=== PATIENT | male | born 1980 | race Caucasian/White ===

== ENCOUNTER 2020-06-09 22:05 | Inpatient (IN) | payer MEDICAID, SELFPAY ==
[~2020-06-09] VITALS: Ht 170.2 cm; Wt 75.3 kg
[2020-06-09 22:30] VITALS: Ht 170.2 cm; Wt 75.3 kg
[2020-06-09 22:49] LABS: BASOPHIL % 0.1 % (0-2); PLATELET COUNT 240 x10^3mcL (130-400)
[2020-06-09 22:58] LABS: CALCIUM 8.5 mg/dL (8.5-10.1); CARBON DIOXIDE 26.8 mmol/L (21-32); CHLORIDE SERUM 93 mmol/L (98-107); GFR1 > 60 mL/min; GLUCOSE SERUM 241 mg/dL (74-106); POTASSIUM SERUM 3.8 mmol/L (3.5-5.1); SODIUM SERUM 130 mmol/L (136-145)
[2020-06-10] VITALS (7 sets, daily range): BP systolic 110–146; BP diastolic 71–91
[2020-06-10 01:27] LABS: CHOLESTEROL/HDL RATIO 3.4; MAGNESIUM 2.5 mg/dL (1.8-2.4)
[2020-06-10 01:35] LABS: FREE T4 1.37 ng/dL (0.76-1.46); FREE THYROXINE INDEX 2.7 ug/dL (1.4-4.5); T4(THYROXINE) 7.4 ug/dL (4.7-13.3)
[2020-06-10 01:51] LABS: C REACTIVE PROTEIN 19.5 mg/dL (<=0.9)
[2020-06-10 02:12] LABS: T3 TOTAL 0.44 ng/mL
[2020-06-10 06:08] LABS: BASOPHIL % 0.5 % (0-2); PLATELET COUNT 242 x10^3mcL (130-400); RED CELL DISTRIBUTION WIDTH 13.2 % (11.5-14.5)
[2020-06-10 06:35] LABS: UA SPECIFIC GRAVITY 1.025 (1.005-1.035); microscopic required? YES; urine erythrocyte TRACE (NEGATIVE)
[2020-06-10 06:54] LABS: AMPHETAMINE QUAL UR NONE DETECTED (See below)
[2020-06-10 07:05] LABS: CALCIUM 8.2 mg/dL (8.5-10.1); CARBON DIOXIDE 29.1 mmol/L (21-32); CHLORIDE SERUM 94 mmol/L (98-107); CREATININE SERUM 0.9 mg/dL (0.7-1.3); GFR1 > 60 mL/min; GLUCOSE SERUM 256 mg/dL (74-106); MAGNESIUM 2.3 mg/dL (1.8-2.4); PHOSPHOROUS 3.5 mg/dL (2.5-4.9); POTASSIUM SERUM 3.7 mmol/L (3.5-5.1); SODIUM SERUM 131 mmol/L (136-145)
[2020-06-11 05:30] VITALS: BP 102/74
[2020-06-11 06:59] LABS: ALKALINE PHOSPHATASE 65 U/L (46-116); ALT/SGPT 32 U/L (16-63); AST/SGOT 34 U/L (15-37); BILIRUBIN TOTAL 0.5 mg/dL (0.20-1.00); CALCIUM 8.9 mg/dL (8.5-10.1); CARBON DIOXIDE 22.2 mmol/L (21-32); CHLORIDE SERUM 96 mmol/L (98-107); CREATININE SERUM 0.9 mg/dL (0.7-1.3); GFR1 > 60 mL/min; GLUCOSE SERUM 316 mg/dL (74-106); MAGNESIUM 2.7 mg/dL (1.8-2.4); PHOSPHOROUS 3.8 mg/dL (2.5-4.9); POTASSIUM SERUM 4.1 mmol/L (3.5-5.1); SODIUM SERUM 133 mmol/L (136-145); TOTAL PROTEIN, SERUM 7.5 g/dL (6.4-8.2)
[2020-06-11 07:01] LABS: BASOPHIL % 0.2 % (0-2); PLATELET COUNT 310 x10^3mcL (130-400); RED CELL DISTRIBUTION WIDTH 12.9 % (11.5-14.5)
[2020-06-11 07:09] LABS: ALBUMIN 2.5 g/dL (3.4-5.0)
[2020-06-11 07:40] LABS: C REACTIVE PROTEIN 17.2 mg/dL (<=0.9)
[2020-06-11 08:49] VITALS: BP 103/70
[2020-06-11 13:16] VITALS: BP 125/75
[2020-06-11 16:10] VITALS: BP 115/75
[2020-06-11 19:49] VITALS: BP 118/78
[2020-06-12 06:04] VITALS: BP 106/70
[2020-06-12 07:18] LABS: BASOPHIL % 0.3 % (0-2); PLATELET COUNT 385 x10^3mcL (130-400)
[2020-06-12 07:37] VITALS: BP 106/72
[2020-06-12 08:21] LABS: ALKALINE PHOSPHATASE 64 U/L (46-116); ALT/SGPT 31 U/L (16-63); AST/SGOT 30 U/L (15-37); BILIRUBIN TOTAL 0.4 mg/dL (0.20-1.00); C REACTIVE PROTEIN 5.6 mg/dL (<=0.9); CARBON DIOXIDE 29.3 mmol/L (21-32); CHLORIDE SERUM 100 mmol/L (98-107); CREATININE SERUM 0.7 mg/dL (0.7-1.3); GFR1 > 60 mL/min; GLUCOSE SERUM 166 mg/dL (74-106); MAGNESIUM 2.4 mg/dL (1.8-2.4); PHOSPHOROUS 3.5 mg/dL (2.5-4.9); POTASSIUM SERUM 3.5 mmol/L (3.5-5.1); SODIUM SERUM 138 mmol/L (136-145); TOTAL PROTEIN, SERUM 7.1 g/dL (6.4-8.2)
[2020-06-12 08:23] LABS: ALBUMIN 2.4 g/dL (3.4-5.0)
[2020-06-12 11:46] VITALS: BP 113/75
[2020-06-12 16:25] VITALS: BP 132/84
[2020-06-12 21:43] VITALS: BP 129/79
[2020-06-13 06:02] VITALS: BP 134/79
[2020-06-13 07:28] LABS: BASOPHIL % 0.2 % (0-2); RED CELL DISTRIBUTION WIDTH 13.1 % (11.5-14.5)
[2020-06-13 07:32] LABS: CALCIUM 8.7 mg/dL (8.5-10.1); CARBON DIOXIDE 27.7 mmol/L (21-32); CHLORIDE SERUM 103 mmol/L (98-107); CREATININE SERUM 0.8 mg/dL (0.7-1.3); GFR1 > 60 mL/min; GLUCOSE SERUM 227 mg/dL (74-106); MAGNESIUM 2.1 mg/dL (1.8-2.4); PHOSPHOROUS 3.8 mg/dL (2.5-4.9); POTASSIUM SERUM 3.4 mmol/L (3.5-5.1); SODIUM SERUM 139 mmol/L (136-145)
[2020-06-13 08:03] VITALS: BP 99/59
[2020-06-13 08:10] LABS: PLATELET COUNT 441 x10^3mcL (130-400)
[2020-06-13 08:20] LABS: BILIRUBIN DIRECT 0.09 mg/dL (0.0-0.2); BILIRUBIN TOTAL 0.4 mg/dL (0.20-1.00); TOTAL PROTEIN, SERUM 6.8 g/dL (6.4-8.2)
[2020-06-13 08:27] LABS: ALBUMIN 2.4 g/dL (3.4-5.0)
[2020-06-13 13:56] VITALS: BP 134/56
[2020-06-13 17:17] VITALS: BP 126/75
[2020-06-13 20:36] VITALS: BP 132/81
[2020-06-14 04:15] VITALS: BP 129/84
[2020-06-14 07:37] LABS: BASOPHIL % 0.1 % (0-2); RED CELL DISTRIBUTION WIDTH 12.9 % (11.5-14.5)
[2020-06-14 07:56] LABS: CALCIUM 8.7 mg/dL (8.5-10.1); CARBON DIOXIDE 26.4 mmol/L (21-32); CHLORIDE SERUM 102 mmol/L (98-107); CREATININE SERUM 0.7 mg/dL (0.7-1.3); GFR1 > 60 mL/min; GLUCOSE SERUM 227 mg/dL (74-106); MAGNESIUM 1.8 mg/dL (1.8-2.4); PHOSPHOROUS 2.9 mg/dL (2.5-4.9); POTASSIUM SERUM 3.8 mmol/L (3.5-5.1); SODIUM SERUM 137 mmol/L (136-145)
[2020-06-14 08:10] LABS: PLATELET COUNT 494 x10^3mcL (130-400)
[2020-06-14 08:28] VITALS: BP 105/79
[2020-06-14 09:05] LABS: BILIRUBIN DIRECT 0.07 mg/dL (0.0-0.2); BILIRUBIN TOTAL 0.3 mg/dL (0.20-1.00)
[2020-06-14 09:28] LABS: ALBUMIN 2.5 g/dL (3.4-5.0); TOTAL PROTEIN, SERUM 6.1 g/dL (6.4-8.2)
[2020-06-14 12:04] VITALS: BP 135/89
[2020-06-14 16:44] VITALS: BP 126/80
[2020-06-14 20:20] VITALS: BP 102/76
[2020-06-15 05:50] VITALS: BP 104/74
[2020-06-15 07:42] LABS: RED CELL DISTRIBUTION WIDTH 13.3 % (11.5-14.5)
[2020-06-15 07:53] VITALS: BP 111/77
[2020-06-15 08:21] LABS: C REACTIVE PROTEIN 4.4 mg/dL (<=0.9); CALCIUM 8.9 mg/dL (8.5-10.1); CARBON DIOXIDE 25.5 mmol/L (21-32); CHLORIDE SERUM 103 mmol/L (98-107); CREATININE SERUM 0.9 mg/dL (0.7-1.3); GFR1 > 60 mL/min; GLUCOSE SERUM 216 mg/dL (74-106); LACTIC DEHYDROGENASE (LDH) 293 U/L (100-190); MAGNESIUM 2.1 mg/dL (1.8-2.4); PHOSPHOROUS 3.4 mg/dL (2.5-4.9); PLATELET COUNT 629 x10^3mcL (130-400); POTASSIUM SERUM 4.1 mmol/L (3.5-5.1); SODIUM SERUM 136 mmol/L (136-145)
[2020-06-15 09:12] LABS: ALBUMIN 2.5 g/dL (3.4-5.0); BILIRUBIN DIRECT 0.09 mg/dL (0.0-0.2); BILIRUBIN TOTAL 0.3 mg/dL (0.20-1.00)
[2020-06-15 11:56] LABS: BAND NEUTROPHIL 2 % (0-10); MONOCYTE 3 % (0-7); SEGMENTED NEUTROPHILS 78 % (37-75); rbc morphology (normal/abnorm) NORMAL (NORMAL)
[2020-06-15 12:19] VITALS: BP 109/74
[2020-06-15 16:25] VITALS: BP 113/78
[2020-06-15 22:04] VITALS: BP 113/77
[2020-06-16 06:01] VITALS: BP 121/86
[2020-06-16 06:59] LABS: CALCIUM 9.2 mg/dL (8.5-10.1); CARBON DIOXIDE 28.4 mmol/L (21-32); CHLORIDE SERUM 101 mmol/L (98-107); CREATININE SERUM 0.9 mg/dL (0.7-1.3); GFR1 > 60 mL/min; GLUCOSE SERUM 300 mg/dL (74-106); PHOSPHOROUS 3.4 mg/dL (2.5-4.9); POTASSIUM SERUM 4.1 mmol/L (3.5-5.1); SODIUM SERUM 137 mmol/L (136-145)
[2020-06-16 07:11] LABS: BASOPHIL % 0.6 % (0-2); RED CELL DISTRIBUTION WIDTH 13.6 % (11.5-14.5)
[2020-06-16 07:13] LABS: PLATELET COUNT 675 x10^3mcL (130-400)
[2020-06-16 08:47] VITALS: BP 114/75
[2020-06-16 08:51] LABS: BILIRUBIN DIRECT 0.07 mg/dL (0.0-0.2); BILIRUBIN TOTAL 0.3 mg/dL (0.20-1.00); TOTAL PROTEIN, SERUM 7.2 g/dL (6.4-8.2)
[2020-06-16 08:56] LABS: ALBUMIN 2.5 g/dL (3.4-5.0)
[2020-06-16] MEDS ORDERED: DECADRON6 MG PO (09:28)
[2020-06-16] MEDS ORDERED: XARELTO10 M1 PO (09:29)
[2020-06-16] MEDS ORDERED: BLOOD LANCETS1 EACH TOP (09:30)
[2020-06-16] MEDS ORDERED: EASY COMFORT ALCO70% TOP (09:31)
[2020-06-16] MEDS ORDERED: ACCU-CHEK AVIV1 EACH MC (09:32)
[2020-06-16] MEDS ORDERED: METER-CHECK1 EACH MC (09:34)
[2020-06-16] MEDS ORDERED: BASAGLAR K100 UNIT/1 SQ (09:35)
[2020-06-16] MEDS ORDERED: MUCINEX600 MG PO (09:38)
[2020-06-16] MEDS ORDERED: HUMULIN R100 U/1 M1 SC (09:38)
[2020-06-16 13:12] VITALS: BP 123/84
[2020-06-16 14:29] VITALS: BP 123/84
== END 2020-06-16 19:55 | disposition home or self-care (01) | DRG 137 ==
LOC: ED 22:05 → EDBD 22:05 → DU 23:55
PROVIDERS: Internal Medicine; Student in an Organized Health Care Education/Training Program; ADMIT Student in an Organized Health Care Education/Training Program; ATTEND Student in an Organized Health Care Education/Training Program
PROC: XW13325 Transfusion of Convalescent Plasma (Nonautologous) into Peripheral Vein, Percutaneous Approach, New Technology Group 5 (ICD-10-PCS; 2020-06-12)
PROC: XW033E5 Introduction of Remdesivir Anti-infective into Peripheral Vein, Percutaneous Approach, New Technology Group 5 (ICD-10-PCS; principal; 2020-06-13)
PROC: XW033E5 Introduction of Remdesivir Anti-infective into Peripheral Vein, Percutaneous Approach, New Technology Group 5 (ICD-10-PCS; 2020-06-13)
DX: U07.1 COVID-19 (principal); J96.01 Acute respiratory failure with hypoxia; N17.0 Acute kidney failure with tubular necrosis; E87.8 Other disorders of electrolyte and fluid balance, not elsewhere classified; E83.39 Other disorders of phosphorus metabolism; E02 Subclinical iodine-deficiency hypothyroidism; E87.1 Hypo-osmolality and hyponatremia; E11.9 Type 2 diabetes mellitus without complications; Z79.4 Long term (current) use of insulin; E86.0 Dehydration; Z79.899 Other long term (current) drug therapy; J12.9 Viral pneumonia, unspecified
CPT/HCPCS: 36600; 82962; 83880; 84439; 85378; 94150; G0378; J0456; J1100; J1644; J1650; J1815; J2405; J3535; J7030; J7050; Q0092; U0003-CS